=== PATIENT | male | born 1960 | race American Indian/Alaskan Native ===

== ENCOUNTER 2017-10-17 17:40 | Emergency (ER) | payer MEDICAID ==
[2017-10-17] MEDS ORDERED: ZOFRAN IV ONE (17:51)
[2017-10-17] MEDS ORDERED: SUBLIMAZE IV ONE ×3 (17:51→18:57)
[2017-10-17] MEDS ORDERED: NACL 0.9% 1000 ML 1,000 ML IV ONE (17:51)
[2017-10-17 18:04] LABS: Basophils # (Auto) 0.1 K/mm3 (0.0-0.1); Basophils % (Auto) 0.6 % (0.0-1.8); Eosinophils # (Auto) 0.1 K/mm3 (0.0-0.4); Eosinophils % (Auto) 0.7 % (0.0-4.3); Hematocrit 44.1 % (35.5-45.6); Hemoglobin 14.9 gm/dl (11.8-15.2); Lymphocytes # (Auto) 2.2 K/mm3 (1.2-5.4); Lymphocytes % (Auto) 21.6 % (13.4-35.0); Mean Corpuscular HGB Conc 34 % (32-34); Mean Corpuscular Hemoglobin 31 pg (28-32); Mean Corpuscular Volume 93 fl (84-94); Monocytes # (Auto) 0.5 K/mm3 (0.0-0.8); Monocytes % (Auto) 4.6 % (0.0-7.3); Platelet Count 293 K/mm3 (140-440); Red Blood Count 4.77 M/mm3 (3.65-5.03); Red Cell Distribution Width 13.7 % (13.2-15.2)
--- NOTE | 2017-10-17 18:32 | Emergency Department Report ---
HPI - General Chief Complaint: Fall Time Seen by Provider: 10/17/17 17:50 - HPI HPI: The patient is a 57-year-old male who fell approximately 10 feet from a ladder while cleaning his gutters at 11 AM earlier today. He complains of left-sided chest pain since the incident, sharp in quality, 10/10 in severity, exacerbated with movement of the left arm, and also left elbow pain, vomiting quality, moderate severity, exacerbated with movement of the elbow. She denies , injury to the head, syncope, neck pain, dyspnea, back pain, pelvic pain, pain to the other extremities, paresthesia, or lateralizing motor deficit. ED Past Medical Hx - Past Medical History Previous Medical History?: Yes Hx Hypertension: Yes Additional medical history: gout - Surgical History Past Surgical History?: Yes Additional Surgical History: left knee surgery - Social History Smoking Status: Current Every Day Smoker Substance Use Type: None - Medications Home Medications: Home Medications Medication Instructions Recorded Confirmed Last Taken Type Ibuprofen [Motrin] 800 mg PO Q8HR PRN #15 tablet 10/17/17 Unknown Rx amLODIPine [Norvasc] 5 mg PO DAILY #31 tab 10/17/17 Unknown Rx traMADol [Ultram 50 MG tab] 50 mg PO Q6HR PRN #15 tablet 10/17/17 Unknown Rx ED Review of Systems ROS: Stated complaint: FEEL BRICK HIT CHEST Other details as noted in HPI Constitutional: denies: fever ENT: denies: throat or neck pain Respiratory: denies: cough, shortness of breath Cardiovascular: reports: chest pain Endocrine: denies unexplained weight loss or gain Gastrointestinal: denies: abdominal pain, nausea Genitourinary: denies: dysuria Musculoskeletal: reports left elbow pain denies: leg swelling Skin: denies: rash Neurological: denies: headache Hematological/Lymphatic: denies: easy bleeding or easy bruising Psych: denies sadness or hopelessness Physical Exam - Physical Exam Vital Signs: Vital Signs 10/17/17 10/17/17 17:45 17:52 Temperature 98 F Pulse Rate 107 H Respiratory 24 16 Rate Blood Pressure 161/102 O2 Sat by Pulse 99 99 Oximetry Physical Exam: General: well-nourished, well-developed, no acute distress Head: Normocephalic, atraumatic Eyes: normal sclera ENT: Mucous membranes are pink and moist Neck: trachea midline, neck supple, No neck stiffness, no cervical adenopathy Respiratory: Breath sounds equal bilaterally, no wheezing, rales, or rhonchi Cardio: S1 and S2 present, no murmurs, rubs, gallops, capillary refill is brisk Abdomen: Normoactive bowel sounds, soft abdomen, no rigidity, no guarding or rebound tenderness Chest WALL/Back: No tenderness to palpation of the chest wall, no crepitus of the chest wall, no bruising, swelling, no CVA tenderness with percussion Musc: Left elbow and knee tenderness to palpation present, left elbow swelling present, passive range of motion of the left elbow intact, sensation and motor function and pulses intact in the distal left arm and lower leg Skin: No rash Neuro: no facial drooping, normal speech Psych: Normal affect ED Course Vital Signs 10/17/17 10/17/17 17:45 17:52 Temperature 98 F Pulse Rate 107 H Respiratory 24 16 Rate Blood Pressure 161/102 O2 Sat by Pulse 99 99 Oximetry ED Medical Decision Making - Lab Data Result diagrams: 10/17/17 17:39 10/17/17 17:39 - Medical Decision Making The patient was seen and examined by myself. The patient is placed on a cardiac specialist and continuous pulse ox. On initial evaluation, the patient was found to be in no distress. Evaluation orders were placed. The patient is given IV fentanyl for his pain away normal saline fluid bolus for treatment of his cardiac, . EKG is negative for ST elevation or depression. X-ray of the chest is negative for pneumothorax, widened mediastinum, or other emergent cardio pulmonary disease process. Lab results are unrevealing. X-ray of the left knee and left elbow is negative. The patient was reevaluated and reported that their symptoms were markedly improved, and the patient has vital signs all within normal limits, heart rate now 86 while at bedside. The patient is stable for discharge with outpatient follow-up. The patient is given follow-up and return instructions. The patient expressed understanding and agreed with the plan. The patient is discharged in stable condition. Critical care attestation.: If time is entered above; I have spent that time in minutes in the direct care of this critically ill patient, excluding procedure time. ED Disposition Clinical Impression: Acute chest pain, Acute pain of left knee, Pain and swelling of left elbow Fall from ladder Qualifiers: Encounter type: initial encounter Qualified Code(s): W11.XXXA - Fall on and from ladder, initial encounter Disposition: - TO HOME OR SELFCARE Is pt being admited?: No Does the pt Need Aspirin: No Condition: Stable Instructions: Chest Pain (ED), Arthralgia (ED) Prescriptions: amLODIPine [Norvasc] 5 mg PO DAILY #31 tab Ibuprofen [Motrin] 800 mg PO Q8HR PRN #15 tablet PRN Reason: Pain traMADol [Ultram 50 MG tab] 50 mg PO Q6HR PRN #15 tablet PRN Reason: Pain Referrals: PRIMARY CARE, [Primary Care Provider] - 3-5 Days [facility] [Outside] - 3-5 Days Time of Disposition: 18:34
[2017-10-17 18:33] LABS: BUN/Creatinine Ratio 16; Blood Urea Nitrogen 14 mg/dL (9-20); Calcium 9.8 mg/dL (8.4-10.2); Hemolysis Index 2
--- NOTE | 2017-10-17 18:54 | XRay Report ---
FINAL REPORT EXAM: XR KNEE 3V LT HISTORY: left knee pain, s/p fall TECHNIQUE: Left knee three views PRIORS: None. 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 No definitive fracture is identified. There is some narrowing at the patellofemoral joint space in there prominent patellar osteophytes present. There is moderate narrowing at the tibia femoral joint space. Minimal joint effusion noted. 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
--- NOTE | 2017-10-17 18:55 | XRay Report ---
FINAL REPORT EXAM: XR ELBOW 3+V LT HISTORY: left elbow pain and swelling TECHNIQUE: 3 views left elbow PRIORS: None. FINDINGS: No fracture identified. No dislocation seen. No evidence of joint effusion. Joint spaces are within normal limits. IMPRESSION: Negative elbow series
--- NOTE | 2017-10-17 18:59 | XRay Report ---
FINAL REPORT EXAM: XR CHEST 1V AP HISTORY: chest pain TECHNIQUE: upright single view chest PRIORS: None. FINDINGS: Cardiac and mediastinal contours are unremarkable. No focal pulmonary infiltrate is identified. No pleural fluid collection seen. Pulmonary vasculature is unremarkable. IMPRESSION: Negative single-view chest
[2017-10-17] MEDS ORDERED: CATAPRES PO ONE (19:53)
[2017-10-17 20:40] VITALS: BP 156/110
== END 2017-10-17 20:44 | disposition home or self-care (01) ==
LOC: ED 17:40
DX: R07.89 Other chest pain (principal); M25.522 Pain in left elbow; M25.562 Pain in left knee; I10 Essential (primary) hypertension; F17.200 Nicotine dependence, unspecified, uncomplicated; W11.XXXA Fall on and from ladder, initial encounter; Y93.89 Activity, other specified; Y92.89 Other specified places as the place of occurrence of the external cause; Y99.8 Other external cause status
CPT/HCPCS: 36415; 71045; 73080; 73562; 80048; 82550; 85025; 93005; 93010; 96361; 96374; 96375; 96376; 99284; J2405; J3010; J7030

== ENCOUNTER 2017-10-31 09:15 | Emergency (ER) | payer MEDICAID ==
[2017-10-31] MEDS ORDERED: TYLENOL ONE (10:13)
[2017-10-31 10:17] VITALS: BP 138/84
--- NOTE | 2017-10-31 12:31 | Emergency Department Report ---
ED General Adult HPI - General Chief complaint: Chest Pain Stated complaint: CHEST PAIN Time Seen by Provider: 10/31/17 12:01 Source: patient Mode of arrival: Ambulatory Limitations: No Limitations - History of Present Illness Initial comments: Patient presents to the ED with the complaint of left arm pain, chest wall pain , back pain 2 weeks. The patient was seen 2 weeks ago due to a fall from a ladder and at that time he states he had negative x-rays. He states initially the Motrin was helping with the pain but it is no longer helping. Patient denies any new symptoms or injuries. - Related Data Previous Rx's Medication Instructions Recorded Last Taken Type Ibuprofen [Motrin] 800 mg PO Q8HR PRN #15 tablet 10/17/17 Unknown Rx amLODIPine [Norvasc] 5 mg PO DAILY #31 tab 10/17/17 Unknown Rx traMADol [Ultram 50 MG tab] 50 mg PO Q6HR PRN #15 tablet 10/17/17 Unknown Rx Acetaminophen with Codeine 1 each PO Q6HR PRN #20 tablet 10/31/17 Unknown Rx [Tylenol with Codeine #3 Tablet] Allergies Allergy/AdvReac Type Severity Reaction Status Date / Time No Known Allergies Allergy Verified 10/31/17 10:24 ED Review of Systems ROS: Stated complaint: CHEST PAIN Other details as noted in HPI Constitutional: denies: chills, fever Eyes: denies: eye pain, eye discharge, vision change ENT: denies: ear pain, throat pain Respiratory: denies: cough, shortness of breath, wheezing Cardiovascular: other (chest wall pain). denies: chest pain, palpitations Endocrine: no symptoms reported Gastrointestinal: denies: abdominal pain, nausea, diarrhea Genitourinary: denies: urgency, dysuria Musculoskeletal: other (left elbow pain). denies: back pain, joint swelling, arthralgia Skin: denies: rash, lesions Neurological: denies: headache, weakness, paresthesias Psychiatric: denies: anxiety, depression Hematological/Lymphatic: denies: easy bleeding, easy bruising ED Past Medical Hx - Past Medical History Previous Medical History?: Yes Hx Hypertension: Yes Additional medical history: gout - Surgical History Past Surgical History?: Yes Additional Surgical History: left knee surgery - Social History Smoking Status: Former Smoker Substance Use Type: None - Medications Home Medications: Home Medications Medication Instructions Recorded Confirmed Last Taken Type Ibuprofen [Motrin] 800 mg PO Q8HR PRN #15 tablet 10/17/17 Unknown Rx amLODIPine [Norvasc] 5 mg PO DAILY #31 tab 10/17/17 Unknown Rx traMADol [Ultram 50 MG tab] 50 mg PO Q6HR PRN #15 tablet 10/17/17 Unknown Rx Acetaminophen with Codeine 1 each PO Q6HR PRN #20 tablet 10/31/17 Unknown Rx [Tylenol with Codeine #3 Tablet] ED Physical Exam - General Limitations: No Limitations General appearance: alert, in no apparent distress - Head Head exam: Present: atraumatic, normocephalic - Eye Eye exam: Present: normal appearance, PERRL, EOMI - ENT ENT exam: Present: mucous membranes moist - Neck Neck exam: Present: normal inspection - Respiratory Respiratory exam: Present: normal lung sounds bilaterally, other (CTAB). Absent : respiratory distress, wheezes, rales, rhonchi - Cardiovascular Cardiovascular Exam: Present: regular rate, normal rhythm, other (left chest wall tender to palpation). Absent: systolic murmur, diastolic murmur, rubs, gallop - GI/Abdominal GI/Abdominal exam: Present: soft, normal bowel sounds. Absent: distended, tenderness - Rectal Rectal exam: Present: deferred - Extremities Exam Extremities exam: Present: normal inspection, other (tender to palpation lateral aspect of the left elbow. Left elbow swollen.) - Back Exam Back exam: Present: normal inspection - Neurological Exam Neurological exam: Present: alert, oriented X3, CN II-XII intact. Absent: motor sensory deficit - Psychiatric Psychiatric exam: Present: normal affect, normal mood - Skin Skin exam: Present: warm, dry, intact, normal color. Absent: rash ED Course Vital Signs 10/31/17 09:57 Temperature 97.6 F Pulse Rate 65 Respiratory 18 Rate Blood Pressure 138/84 O2 Sat by Pulse 100 Oximetry ED Medical Decision Making - Medical Decision Making Patient again endorses that there is fairly available was negative and politely declines to do imaging Critical care attestation.: If time is entered above; I have spent that time in minutes in the direct care of this critically ill patient, excluding procedure time. ED Disposition Clinical Impression: Elbow pain, left, Chest wall pain Disposition: DC- TO HOME OR SELFCARE Is pt being admited?: No Does the pt Need Aspirin: No Condition: Stable Instructions: Chest Pain (ED), Elbow Sprain (ED), Thoracic Pain (ED) Additional Instructions: return if worse Prescriptions: Acetaminophen with Codeine [Tylenol with Codeine #3 Tablet] 1 each PO Q6HR PRN # 20 tablet PRN Reason: pain Referrals: PRIMARY CARE, [Primary Care Provider] - 3-5 Days [facility] [Outside] - 3-[address] [facility] [Outside] - 3-5 Days Time of Disposition: 12:31
== END 2017-10-31 12:35 | disposition home or self-care (01) ==
LOC: ED 09:15
DX: M25.522 Pain in left elbow (principal); R07.89 Other chest pain; I10 Essential (primary) hypertension; M10.9 Gout, unspecified; Z87.891 Personal history of nicotine dependence
CPT/HCPCS: 93005; 93010; 99282

== ENCOUNTER 2019-05-01 14:21 | Emergency (ER) | payer MEDICAID ==
[2019-05-01 14:40] VITALS: BP 135/94
--- NOTE | 2019-05-01 14:58 | Event Note ---
ED Screening Note ED Screening Note: 58 yo male with 3 weeks lower back pain radiating to right leg. Treated at OSH 2 days ago. This initial assessment/diagnostic orders/clinical plan/treatment(s) is/are subject to change based on patients health status, clinical progression and re- assessment by fellow clinical providers in the ED. Further treatment and workup at subsequent clinical providers discretion. Patient/guardian urged not to elope from the ED as their condition may be serious if not clinically assessed and managed. Initial orders include: referred to treatment room
--- NOTE | 2019-05-01 20:46 | Emergency Department Report ---
ED Back Pain/Injury HPI - General Chief Complaint: Back Pain/Injury Stated Complaint: BACK/LEG PAIN Time Seen by Provider: 05/01/19 20:30 Source: patient Limitations: No Limitations - History of Present Illness Initial Comments: Patient is a 58-year-old male that presents emergency room with complaints of back pain. Patient states the back pain is rating down his right leg. Patient states the pain is been going on for 2 weeks. Patient states that he went to [facility] 2 days ago and had an x-ray and it was negative. Patient states he was given ibuprofen 800. Patient states his decreasing his pain. Patient states his pain is a 10 out of 10. Patient states his pain is better with rest and worse with movement. Patient states he has not seen an orthopedist. [address] states he has not seen his primary care for this problem. Patient denies trauma and falls. MD Complaint: back pain -: Gradual, week(s) Similar Symptoms Previously: No Place: home Radiation: right leg Severity: severe Severity scale (0 -10): 10 Quality: stabbing Consistency: constant Improves With: supine, other Worsens With: movement, sitting upright, walking Context: other Associated Symptoms: denies: confusion, weakness, chest pain, numbness, difficulty walking, cough, difficulty urinating, diaphoresis, incontinence, fever/chills, constipation, headaches, abdominal pain, loss of appetite, malaise, nausea/vomiting, rash, seizure, shortness of breath, syncope Treatments Prior to Arrival: NSAIDS, other medications - Related Data Previous Rx's Medication Instructions Recorded Last Taken Type Ibuprofen [Motrin] 800 mg PO Q8HR PRN #15 tablet 10/17/17 Unknown Rx amLODIPine [Norvasc] 5 mg PO DAILY #31 tab 10/17/17 Unknown Rx traMADoL [Ultram 50 MG tab] 50 mg PO Q6HR PRN #15 tablet 10/17/17 Unknown Rx Acetaminophen with Codeine 1 each PO Q6HR PRN #20 tablet 10/31/17 Unknown Rx [Tylenol with Codeine #3 Tablet] Ibuprofen [Motrin] 600 mg PO Q8H PRN #20 tablet 12/03/18 Unknown Rx Acetaminophen/Codeine [Tylenol 1 tab PO Q6H PRN #10 tab 05/01/19 Unknown Rx /Codeine # 3 tab] Cyclobenzaprine [Flexeril 10 MG 10 mg PO QHS PRN #10 tablet 05/01/19 Unknown Rx TAB] methylPREDNISolone [Medrol 4MG 4 mg PO DAILY 6 Days #1 tab.ds.pk 05/01/19 Unknown Rx DOSEPAK (21 tabs)] Allergies Allergy/AdvReac Type Severity Reaction Status Date / Time No Known Allergies Allergy Verified 10/31/17 10:24 ED Review of Systems ROS: Stated complaint: BACK/LEG PAIN Other details as noted in HPI Constitutional: denies: chills, fever Eyes: denies: eye pain, eye discharge, vision change ENT: denies: ear pain, throat pain Respiratory: denies: cough, shortness of breath, wheezing Cardiovascular: denies: chest pain, palpitations Endocrine: no symptoms reported Gastrointestinal: denies: abdominal pain, nausea, diarrhea Genitourinary: denies: urgency, dysuria Musculoskeletal: back pain. denies: joint swelling, arthralgia Skin: denies: rash, lesions Neurological: denies: headache, weakness, paresthesias Psychiatric: denies: anxiety, depression Hematological/Lymphatic: denies: easy bleeding, easy bruising ED Past Medical Hx - Past Medical History Previous Medical History?: Yes Hx Hypertension: Yes Additional medical history: gout, Back and sciatic nerve pain - Surgical History Past Surgical History?: Yes Additional Surgical History: left knee surgery - Family History Family history: no significant - Social History Smoking Status: Current Every Day Smoker Substance Use Type: Alcohol, Prescribed - Medications Home Medications: Home Medications Medication Instructions Recorded Confirmed Last Taken Type Ibuprofen [Motrin] 800 mg PO Q8HR PRN #15 tablet 10/17/17 Unknown Rx amLODIPine [Norvasc] 5 mg PO DAILY #31 tab 10/17/17 Unknown Rx traMADoL [Ultram 50 MG tab] 50 mg PO Q6HR PRN #15 tablet 10/17/17 Unknown Rx Acetaminophen with Codeine 1 each PO Q6HR PRN #20 tablet 10/31/17 Unknown Rx [Tylenol with Codeine #3 Tablet] Ibuprofen [Motrin] 600 mg PO Q8H PRN #20 tablet 12/03/18 Unknown Rx Acetaminophen/Codeine [Tylenol 1 tab PO Q6H PRN #10 tab 05/01/19 Unknown Rx /Codeine # 3 tab] Cyclobenzaprine [Flexeril 10 MG 10 mg PO QHS PRN #10 tablet 05/01/19 Unknown Rx TAB] methylPREDNISolone [Medrol 4MG 4 mg PO DAILY 6 Days #1 tab.ds.pk 05/01/19 Unknown Rx DOSEPAK (21 tabs)] ED Physical Exam - General Limitations: No Limitations General appearance: alert, in no apparent distress - Head Head exam: Present: atraumatic, normocephalic - Eye Eye exam: Present: normal appearance - ENT ENT exam: Present: mucous membranes moist - Neck Neck exam: Present: normal inspection - Respiratory Respiratory exam: Present: normal lung sounds bilaterally. Absent: respiratory distress, wheezes, rales - Cardiovascular Cardiovascular Exam: Present: regular rate, normal rhythm. Absent: systolic murmur, diastolic murmur, rubs, gallop - GI/Abdominal GI/Abdominal exam: Present: soft, normal bowel sounds. Absent: distended, tenderness, guarding - Rectal Rectal exam: Present: deferred - Extremities Exam Extremities exam: Present: normal inspection, full ROM, normal capillary refill. Absent: tenderness, pedal edema, joint swelling, calf tenderness - Back Exam Back exam: Present: normal inspection, full ROM, tenderness (Tenderness over the sacroiliac joint. Consistent with sacroiliitis.), muscle spasm. Absent: CVA tenderness (R), CVA tenderness (L), paraspinal tenderness, vertebral tenderness - Neurological Exam Neurological exam: Present: alert, oriented X3, normal gait - Psychiatric Psychiatric exam: Present: normal affect, normal mood. Absent: depressed, agitated - Skin Skin exam: Present: warm, dry, intact, normal color. Absent: rash ED Course Vital Signs 05/01/19 05/01/19 14:33 14:40 Temperature 97.9 F 97.9 F Pulse Rate 76 76 Respiratory 18 18 Rate Blood Pressure 135/94 Blood Pressure 135/94 [Right] O2 Sat by Pulse 99 99 Oximetry - Reevaluation(s) Reevaluation #1: I discussed all clinical findings with patient. I discussed plan of care with patient. Patient agrees with plan of care. Patient is stable for discharge. Patient will be discharged home. Patient given discharge instructions. Patient voiced understanding of discharge instructions. 05/01/19 20:45 ED Medical Decision Making - Medical Decision Making Patient is a 58-year-old male that presents emergency room with complaints of back pain x2 weeks. Patient does not require further evaluation in the ER. Patient is stable for discharge. Patient discharged home. Patient clinical findings are consistent with back pain radiating right leg and consistent with sacroiliitis. - Differential Diagnosis Sacroiliitis, back pain, sciatica. Critical care attestation.: If time is entered above; I have spent that time in minutes in the direct care of this critically ill patient, excluding procedure time. ED Disposition Clinical Impression: Sacroiliitis Back pain Qualifiers: Back pain location: low back pain Chronicity: acute Back pain laterality: bilateral Sciatica presence: with sciatica Sciatica laterality: sciatica of right side Qualified Code(s): M54.41 - Lumbago with sciatica, right side Disposition: TO HOME OR SELFCARE Is pt being admited?: No Does the pt Need Aspirin: No Condition: Stable Instructions: Sacroiliitis (ED), Back Pain (ED), Chronic Back Pain (ED), Acute Low Back Pain (ED), Low Back Strain (ED) Additional Instructions: Patient is to follow-up with primary care in 2 to 3 days. Patient to follow-up with orthopedist in 2 to 3 days. Patient to return to ER if condition worsens, changes or new symptoms arise. Patient to rest. Patient to take meds as directed. . Prescriptions: Cyclobenzaprine [Flexeril 10 MG TAB] 10 mg PO QHS PRN #10 tablet PRN Reason: Muscle Spasm methylPREDNISolone [Medrol 4MG DOSEPAK (21 tabs)] 4 mg PO DAILY 6 Days #1 tab.ds.pk Acetaminophen/Codeine [Tylenol /Codeine # 3 tab] 1 tab PO Q6H PRN #10 tab PRN Reason: Pain , Severe (7-10) Referrals: PRIMARY MD [facility] [Primary Care Provider] - 2-3 Days BURAK STEPHENS MD [Staff Physician] - 2-3 Days Time of Disposition: 20:50
== END 2019-05-01 21:28 | disposition home or self-care (01) ==
LOC: ED 14:21
DX: M46.1 Sacroiliitis, not elsewhere classified (principal); I10 Essential (primary) hypertension; Z98.890 Other specified postprocedural states; Z79.1 Long term (current) use of non-steroidal anti-inflammatories (NSAID); Z79.899 Other long term (current) drug therapy; F17.200 Nicotine dependence, unspecified, uncomplicated
CPT/HCPCS: 99282